=== PATIENT | male | born 1980 | race Caucasian/White ===

== ENCOUNTER 2020-08-10 22:34 | Emergency (ER) | payer OTHER ==
[~2020-08-10] VITALS: Ht 167.6 cm; Wt 79.4 kg
[2020-08-10] MEDS ORDERED: BUSPIRONE HCL7.5 MG (23:43)
[2020-08-10] MEDS ORDERED: NASAL MIST126 ML (23:43)
[2020-08-10] MEDS ORDERED: HYDROXYZINE HCL25 GM (23:43)
[2020-08-10] MEDS ORDERED: ZESTRIL20 MG (23:45)
[2020-08-11] MEDS ORDERED: AMBIEN10 MG PO (01:54)
== END 2020-08-11 02:03 | disposition home or self-care (01) ==
LOC: ER 22:34
DX: G47.09 Other insomnia (principal); F06.4 Anxiety disorder due to known physiological condition

== ENCOUNTER → 2020-08-17 | Outpatient (CLI) | payer OTHER ==
[~2020-08-17] MED LIST: AMBIEN10 MG PO; BUSPIRONE HCL7.5 MG; HYDROXYZINE HCL25 GM; NASAL MIST126 ML; ZESTRIL20 MG
== END | disposition home or self-care (01) ==
LOC: MRI 08-16 11:15
DX: H93.12 Tinnitus, left ear (principal)
CPT/HCPCS: 70553

== ENCOUNTER 2020-09-19 14:30 | Outpatient (CLI) | payer OTHER | END 2020-09-19 14:39 | disposition home or self-care (01) | LOC: RAD 14:30 | PROVIDERS: ATTEND Otolaryngology Otolaryngology/Facial Plastic Surgery | DX: M54.2 Cervicalgia (principal) ==

== ENCOUNTER → 2020-09-26 | Outpatient (CLI) | payer OTHER | END | disposition home or self-care (01) | LOC: OFIC 805 09-21 11:00 | PROVIDERS: ATTEND Otolaryngology Otology & Neurotology | DX: H93.13 Tinnitus, bilateral (principal); H91.8X3 Other specified hearing loss, bilateral; H69.81 Other specified disorders of Eustachian tube, right ear ==